=== PATIENT | male | born 1980 | race Caucasian/White ===

== ENCOUNTER 2018-09-21 18:16 | Emergency (ER) | payer OTHER ==
[~2018-09-21] VITALS: Ht 170.2 cm; Wt 80.0 kg
[2018-09-21 18:18] VITALS: Ht 170.2 cm; Wt 80.0 kg
[2018-09-21] MEDS ORDERED: ACET-141 PO (20:52)
[2018-09-21] MEDS ORDERED: IBUP-1542 PO (20:52)
[2018-09-21] MEDS ORDERED: METH750T93 PO (20:53)
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
[2018-09-21 21:09] VITALS: BP 142/87; PULSE 62; RESP 18
== END 2018-09-21 21:09 | disposition home or self-care (01) ==
LOC: FTE 18:16
DX: M54.6 Pain in thoracic spine (principal)
CPT/HCPCS: 99283